=== PATIENT | female | born 1955 | race Caucasian/White ===

== ENCOUNTER 2019-08-17 14:57 | Emergency (ER) | payer MEDICARE, OTHER ==
[2019-08-17] MEDS ORDERED: Lidocaine 1% 20 ML MDV ONE (16:03)
== END 2019-08-17 17:12 | disposition home or self-care (01) ==
LOC: SCSER 14:57
DX: L02.811 Cutaneous abscess of head [any part, except face] (principal); I10 Essential (primary) hypertension; F17.210 Nicotine dependence, cigarettes, uncomplicated; Z86.73 Personal history of transient ischemic attack (TIA), and cerebral infarction without residual deficits
CPT/HCPCS: 10060; J2001

== ENCOUNTER 2019-12-16 10:53 | Outpatient (CLI) | payer MEDICARE ==
--- NOTE | 2019-12-16 11:26 | BD ---
EXAM: Bone densitometry using DEXA HISTORY: 64 yo female. Screening for postmenopausal osteoporosis. Age-related osteoporosis without current pat hological fracture FINDINGS: L1--bone mineral density 0.804 g/sq cm; T score -1.7 ; Z score -0.3 L2--bone mineral density 0.824 g/sq cm; T score -1.9 ; Z score -0.3 L3--bone mineral density 0.798 g/sq cm; T score -2.6 ; Z score -1.0 L4--bone mineral density 0.851 g/sq cm; T score -1.9 ; Z score -0.2 Total L1-L4--bone mineral density 0.821 g/sq cm; T score -2.1 ; Z score -0.5 Left femoral neck--bone mineral density0.410; T score -4.0 ; Z score -2.6 Total proximal left femur--bone mineral density 0.512; T score -3.5 ; Z score -2.4 IMPRESSION: Osteoporosis
--- NOTE | 2019-12-17 10:13 | MMO ---
Bilateral MAMMO Bilat Screen [facility]. CLINICAL HISTORY: Patient is 64 years old and is seen for screening. The patient has no family history of breast cancer. The patient has no personal history of cancer. VIEWS: The views performed were: bilateral craniocaudal with tomosynthesis and bilateral mediolateral oblique with tomosynthesis. FILMS COMPARED: The present examination has been compared to prior imaging studies performed at [facility] on 01/16/2017, and at [facility] on 04/23/2015. This study has been interpreted with the assistance of computer-aided detection. MAMMOGRAM FINDINGS: There are scattered fibroglandular densities. There are stable benign appearing calcifications seen in both breasts. There are also vascular calcifications. There are no suspicious masses, suspicious calcifications, or new areas of architectural distortion. IMPRESSION: THERE IS NO MAMMOGRAPHIC EVIDENCE OF MALIGNANCY. A ROUTINE FOLLOW-UP MAMMOGRAM IN 1 YEAR IS RECOMMENDED. THE RESULTS OF THIS EXAM WERE SENT TO THE PATIENT. ACR BI-RADS Category 2 - Benign finding MAMMOGRAPHY NOTE: 1. A negative mammogram report should not delay a biopsy if a dominant of clinically suspicious mass is present. 2. Approximately 10% to 15% of breast cancers are not detected by mammography. 3. Adenosis and dense breasts may obscure an underlying neoplasm. Reported by: VINCE MENDENHALL MD Electonically Signed: [id number]
== END 2019-12-16 10:54 | disposition home or self-care (01) ==
LOC: BICMAMMO 10:53
PROVIDERS: ATTEND Physician Assistant
DX: Z12.31 Encounter for screening mammogram for malignant neoplasm of breast (principal); M81.0 Age-related osteoporosis without current pathological fracture
CPT/HCPCS: 77063; 77067; 77080

== ENCOUNTER 2020-03-23 08:45 | Day surgery (SDC) | payer MEDICARE, OTHER ==
[2020-03-20 17:10] LABS: SARS-CoV-2 MS2 Positive; SARS-CoV-2 N Gene Negative; SARS-CoV-2 S Gene Negative; SARS-CoV-2 orf1ab Negative
[2020-03-22 15:17] VITALS: BMI 20.7
[2020-03-23] MEDS ORDERED: Fentanyl 100 MCG/2 ML VIAL ONE ×2 (10:12→11:30)
[2020-03-23] MEDS ORDERED: PHENYLEPHRINE-NS 100 MCG/ML 10 ML SYRINGE ONE (11:19)
[2020-03-23] MEDS ORDERED: Ketorolac Tromethamine 30 MG/ML VIAL ONE (11:19)
[2020-03-23] MEDS ORDERED: Lidocaine 1% PF 5 ML VIAL ONE (11:19)
[2020-03-23] MEDS ORDERED: PROPOFOL 200 MG/20 ML VIAL ONE (11:19)
[2020-03-23] MEDS ORDERED: EPHEDRINE 25 MG/5 ML SYRINGE ONE (11:19)
[2020-03-23] MEDS ORDERED: Dexamethasone 20 MG/5 ML VIAL ONE (11:19)
[2020-03-23] MEDS ORDERED: Rocuronium Bromide 10 MG/ML (10ML VIAL) ONE (11:19)
[2020-03-23] MEDS ORDERED: Indomethacin 50 MG SUPP ONE ×2 (11:23)
[2020-03-23] MEDS ORDERED: Iothalamate Meglumine 60% 30 ML VIAL FS ONE (11:27)
[2020-03-23] MEDS ORDERED: Levofloxacin 500 mg/D5W 100 ml Premix Bag ONE (11:38)
[2020-03-23] MEDS ORDERED: Iopamidol 50 ML FS ONE (12:53)
--- NOTE | 2020-03-23 14:37 | OP ---
DATE OF PROCEDURE: 03/23/2020 PROCEDURES PERFORMED: 1. Esophagogastroduodenoscopy with balloon dilatation. 2. Endoscopic retrograde cholangiopancreatography with sphincterotomy. MEDICATIONS: Given by Anesthesiology Department. PREPROCEDURE DIAGNOSIS: Recurrent severe right upper quadrant pain with radiation to the back, associated with dilated common bile duct on imaging studies, suspicious for choledocholithiasis. POSTPROCEDURE DIAGNOSES: 1. Tight lower esophageal stricture, status post balloon dilatation. 2. Dilated common bile duct to 16 mm, status post sphincterotomy. 3. No apparent choledocholithiasis. PROCEDURE IN DETAIL: Written consents were obtained prior to procedure. After adequate sedation, the forward-viewing endoscope was advanced down to the hypopharynx under direct vision. At approximately 40 cm, a concentric stricture was seen that did not allow the passage of the endoscope. Above the stricture, a diverticulum like cavity was noted. A sequential multi-stage balloon was then passed down through the stricture and was dilated up to 13.5 mm. The endoscope was able to traverse the stricture into the stomach. Inspection of the stomach was normal. The pylorus was patent. The duodenum appeared normal. A Savary guidewire was then placed through the scope into the stomach with the endoscope removed. The ERCP endoscope was prefilled with a catheter. The guidewire was then tunneled through the catheter with endoscope. The endoscope was advanced down to the guidewire past the stricture into the stomach. The guidewire was then removed. A side-viewing endoscope was advanced through the pylorus into the duodenum. The ampulla was visualized and appeared normal. Selective cannulation was performed using a sphincterotome, it was successful. The pancreatic duct was never injected or cannulated. Injection contrast showed a uniformly very dilated common bile duct to approximately 16 mm. The intrahepatic biliary tree filled and appeared normal. There was no obvious or apparent filling defect. A generous sphincterotomy was performed with good hemostasis. A 15-mm balloon was then used to sweep the duct without any retrieval of stone. Occlusive cholangiogram performed was normal. The balloon was removed. There was prompt excretion of contrast. No other abnormality was seen. The instruments were fully removed. The patient tolerated the procedure well. ASSESSMENT: 1. No apparent choledocholithiasis. 2. Hugely dilated common bile duct to 16 mm. 3. Lower esophageal stricture, status post balloon dilatation. 4. Possibility of sphincter of Oddi dysfunction, status post sphincterotomy. RECOMMENDATIONS: Follow up in 3 to 4 weeks. Job ID: [id number]
--- NOTE | 2020-03-23 15:19 | RAD ---
EXAM: ERCP. HISTORY: Chronic hepatitis C. FINDINGS: Two portable fluoroscopic spot images are performed. There is very marked dilatation of the common bi le duct, common hepatic duct as well as some dilatation of the visualized intrahepatic ducts. The dis kulwinder most common duct is poorly seen. There is a suggestion of a potential filling defect within the d istal common duct. I certainly cannot exclude the possibility of distal common duct stone or other ca use for obstruction. IMPRESSION: Marked abnormally dilated common bile duct. Potential abnormal filling defects in the distal common b ile duct somewhat obscured on this study. The possibility of an intraductal calculus or other etiolog y for distal common duct obstruction is considered. POS: C
== END 2020-03-23 15:00 | disposition home or self-care (01) ==
LOC: SDC 08:45
PROVIDERS: ATTEND Internal Medicine Gastroenterology
PROC: 0D738ZZ Dilation of Lower Esophagus, Via Natural or Artificial Opening Endoscopic (ICD-10-PCS; principal; 2020-03-23)
PROC: 0F798ZZ Dilation of Common Bile Duct, Via Natural or Artificial Opening Endoscopic (ICD-10-PCS; 2020-03-23)
DX: K83.8 Other specified diseases of biliary tract (principal); K22.2 Esophageal obstruction; B18.2 Chronic viral hepatitis C; K21.9 Gastro-esophageal reflux disease without esophagitis; J45.909 Unspecified asthma, uncomplicated; I10 Essential (primary) hypertension; F17.210 Nicotine dependence, cigarettes, uncomplicated; Z86.73 Personal history of transient ischemic attack (TIA), and cerebral infarction without residual deficits; Z79.82 Long term (current) use of aspirin; Z79.899 Other long term (current) drug therapy; Z88.0 Allergy status to penicillin; Z88.5 Allergy status to narcotic agent; Z88.8 Allergy status to other drugs, medicaments and biological substances
CPT/HCPCS: 43249; 43262; 74330; U0003; 87635; J1100; J1885; J1956; J2001; J2704; J3010; Q9967